=== PATIENT | male | born 1960 | race Caucasian/White ===

== ENCOUNTER 2017-02-14 08:00 | Day surgery (SDC) | payer BC ==
[~2017-02-14 08:00] MED LIST: Lactated Ringers 1,000 ML IV SCH; Sodium Chloride 0.9% 10 ML Syringe FLUSH PRN
[2017-02-14] MEDS ORDERED: fentaNYL 100 MCG/2 ML SDV ONE ×2 (08:23→09:20)
[2017-02-14] MEDS ORDERED: Midazolam 1 MG/ML 2 ML SDV ONE ×2 (08:24→09:20)
[2017-02-14] MEDS ORDERED: Propofol 200 MG/20 ML SDV ONE ×2 (08:24→09:20)
[2017-02-14] MEDS ORDERED: Ondansetron 4 MG/2 ML SDV ONE (09:20)
[2017-02-14] MEDS ORDERED: Ketorolac 30 MG/ML SDV ONE (09:20)
[2017-02-14] MEDS ORDERED: ceFAZolin 1 GM Vial ONE ×2 (09:20→10:01)
[2017-02-14] MEDS ORDERED: Bupivacaine 0.25%/EPINEPHrine 1:200,000 30 ML SDV INJECT ONE (09:34)
--- NOTE | 2017-02-14 10:47 | PCM.HPR ---
H & P Addendum review - H & P Addendum Review Date of Original H & P: 02/06/17 Date Reviewed: 02/14/17 Time Reviewed: 09:05 Patient was examined: No Changes (ok to proceed withright IH repair with mesh)
--- NOTE | 2017-02-14 10:49 | PCM.OPNOTE ---
- General Post-Op/Procedure Note Date of Surgery/Procedure: 02/14/17 Operative Procedure(s): R IH repair with mesh Findings: medium sized indirect hernia Pre Op Diagnosis: R IH Post-Op Diagnosis: Same Anesthesia Technique: Local, MAC Primary Surgeon: Korey Grace Anesthesia Provider: Corina Navas EBMemo in mLs: 5 Complications: None Condition: Good
[2017-02-14 13:38] VITALS: BP 93/54
--- NOTE | 2017-02-14 14:54 | OR ---
Date of Procedure: 02/14/2017 PREOPERATIVE DIAGNOSIS: Right inguinal hernia. POSTOPERATIVE DIAGNOSIS: Right inguinal hernia. PROCEDURE: Right inguinal hernia repair with mesh. ANESTHESIA: Local MAC. PROCEDURE IN DETAIL: The patient was brought to the operating room after surgical site had been marked by myself and the patient. Time-out was performed. IV sedation was administered. His right groin area was prepped and draped sterilely. A 50:50 mixture of 1% lidocaine and 0.25% Marcaine with epinephrine was infiltrated. A routine hernia incision was made 2 fingerbreadths above the inguinal ligament and extended through the subcutaneous tissue. External fascia was opened in line with the external ring. Hernia sac and cord structures were dissected off the pubic tubercle and a Katharine drain placed around these. A small lipoma was removed from the cord. The cord and hernia sac were . He has a medium-sized indirect hernia sac that was twisted and suture ligated with 2-0 Vicryl and reduced. The cremasteric muscles were split with cautery and larger pieces were divided and tied with 3-0 Vicryl. This allowed a large pre-cut keel polypropylene mesh to be placed. This was secured to the pubic tubercle with 0 Prolene. A couple more interrupted sutures were used to secure this to David's ligament, and then a transition stitch made to the shelving edge of Poupart's ligament. The edges of the mesh were brought around the cord and the ilioinguinal nerve which was protected. The edges of the mesh were secured with 0 Prolene such that the tip of the small finger would snugly fit into the opening. The mesh ends were cut to length and tucked beneath the external fascia laterally. The superior edge of the mesh was secured to the muscle with interrupted 0 Prolene providing a tension-free repair. Wound was thoroughly irrigated with Ancef and saline. External fascia was closed with running 2-0 Vicryl. Subcutaneous tissue was reapproximated with 2-0 Vicryl. Skin was closed with a running 4-0 Vicryl subcuticular suture. Benzoin and Steri-Strips were placed and a sterile dressing applied. Patient tolerated the procedure well. ESTIMATED BLOOD LOSS: 5 mL. He returned to postanesthesia in stable condition. The testicles were in the scrotum following the procedure. LOVE ROSS MD /[id number]
== END 2017-02-14 12:48 | disposition home or self-care (01) ==
LOC: LL.SDS 08:00
PROVIDERS: ATTEND Surgery
DX: K40.90 Unilateral inguinal hernia, without obstruction or gangrene, not specified as recurrent (principal); Z98.890 Other specified postprocedural states; Z72.0 Tobacco use
CPT/HCPCS: 49505; J0690; J1885; J2250; J2405; J2704; J3010; J7120; A4216; C1781